=== PATIENT | female | born 1990 | race Caucasian/White ===

== ENCOUNTER 2020-08-12 08:55 | Emergency (ER) | payer OTHER, SELFPAY ==
[2020-08-12 10:02] VITALS: BP 152/98; PULSE 78; RESP 16; TEMP 36.8; O2SAT 99
--- NOTE | 2020-08-12 10:17 | ED.DENTAL ---
HPI - Dental/Oral General Chief complaint: Dental/Oral Stated complaint: tooth pain/possible sius infectiom Source: patient Mode of arrival: ambulatory Limitations: no limitations History of Present Illness HPI Narrative: Patient here with right lower dental pain. She reports intermittent dental pain for the past 2 to 3 months. She reports seeing dentist and reports needing tooth removed but has not scheduled as of this time. She reports taking ibuprofen with limited relief. She is also complaining of sinus pain and drainage x2 weeks. She denies fever, denies cough, denies known exposure to Covid, denies sore throat or other complaints. MD Complaint: tooth pain Related Data Allergies Allergy/AdvReac Type Severity Reaction Status Date / Time ANTIHISTAMINES Allergy Unknown Other Uncoded 08/12/20 10:07 Review of Systems Review of Systems: Narrative: CONSTITUTIONAL: Denies fever, chills, or sweats. EYES: Denies visual changes, redness, or discharge. ENT: Denies rhinorrhea, congestion, sore throat, or otalgia. Reports right lower dental pain, reports facial pain and pressure, green nasal drainage CARDIOVASCULAR: Denies chest pain, palpitations, or edema. RESPIRATORY: Denies cough or dyspnea. GASTROINTESTINAL: Denies abdominal pain, nausea, vomiting, or diarrhea. GENITOURINARY: Denies dysuria or hematuria. SKIN: Denies rash or itching. MUSCULOSKELETAL: Denies back pain, joint pain, or myalgia. NEUROLOGIC: Denies headache, numbness, dizziness, or weakness. PSYCHIATRIC: Denies anxiety or depression. [facility] Past Medical History Medical History Asthma Renal disease Surgical History Surgical History History of tonsillectomy and adenoidectomy Hx of tympanostomy tubes Family History Family History (Updated 08/12/20 @ 10:25 by ONEAL Esquivel) Other Cancer Diabetes mellitus Heart disease Renal disease Social History Social History (Updated 08/12/20 @ 10:25 by ONEAL Esquivel) Smoking status: Current every day smoker Tobacco type: cigarettes Alcohol intake: never Substance use: never Gender identity (if verbalized by the patient): Female Exam Narrative: Exam Narrative: GENERAL: Well-appearing, well-nourished, and in no acute distress. HEAD: Normocephalic, atraumatic. EYES: No redness or drainage. Conjunctiva are normal. ENT: Mucous membranes pink and moist. Maxillary sinus tenderness with palpation. Throat normal. Uvula midline. Multiple dental caries NECK: AROM. Supple. No lymphadenopathy. CHEST: No respiratory distress. HEART: Regular rate and rhythm. EXTREMITIES: Normal range of motion. SKIN: Warm, dry, no rash. NEURO: No focal deficits. Alert and oriented x3. Gait steady. PSYCH: Normal affect. No signs of depression or anxiety. Course Vital Signs Vital signs: Vital Signs Temperature 36.8 C 08/12/20 10:02 Pulse Rate 78 08/12/20 10:02 Respiratory Rate 16 08/12/20 10:02 Blood Pressure 152/98 H 08/12/20 10:02 Pulse Oximetry 99 08/12/20 10:02 Temperature 36.8 C 08/12/20 10:02 Pulse Rate 78 08/12/20 10:02 Respiratory Rate 16 08/12/20 10:02 Blood Pressure 152/98 H 08/12/20 10:02 Pulse Oximetry 99 08/12/20 10:02 MDM - Dental/Oral MDM Narrative Medical decision making narrative: Patient appears to have right dental tenderness, multiple dental caries. Maxillary sinus tenderness with palpation also noted. Patient to be treated for acute sinusitis, antibiotics to be prescribed. Patient aware and agrees with plan of care. Patient is stable for discharge home with outpatient follow-up as discussed. Differential Diagnosis Differential diagnosis: Likely dental caries, toothache and other (Sinusitis) Critical Care Time Critical Care Time Critical Care Time: No Discharge Plan Discharge Clinical Impression: Toothache, Dental dale
== END 2020-08-12 10:40 | disposition home or self-care (01) ==
PROVIDERS: Emergency Provider Nurse Practitioner
DX: K08.89 Other specified disorders of teeth and supporting structures (principal); K02.9 Dental caries, unspecified; J01.00 Acute maxillary sinusitis, unspecified; F17.210 Nicotine dependence, cigarettes, uncomplicated; J45.909 Unspecified asthma, uncomplicated
CPT/HCPCS: 99213; G0463

== ENCOUNTER 2023-11-29 12:22 | Outpatient (CLI) | payer OTHER, SELFPAY ==
--- NOTE | 2023-11-29 14:30 | NEURO_ITS ---
Impression: # Complains of blotchy redness of hands and forearms. # Normal Nerve Conduction Study. # No Carpal Tunnel Syndrome or ulnar neuropathy. # Normal needle/EMG exam. Nerve Conduction Studies Anti Sensory Summary Table Stim Site NR Peak (ms) P-T Amp (?V) Site1 Site2 Delta-P (ms) Dist (cm) Chris (m/s) Left Median Anti Sensory (2-3nd Digit) Wrist 2.5 86.2 Wrist 2-3nd Digit 2.5 14.0 56 Wrist 2.5 69.7 Wrist 2-3nd Digit 2.5 14.0 56 Right Median Anti Sensory (2-3nd Digit) Wrist 2.6 50.3 Wrist 2-3nd Digit 2.6 14.0 54 Wrist 2.4 82.6 Wrist 2-3nd Digit 2.6 14.0 54 Left Radial Anti Sensory (Base 1st Digit) Wrist 1.6 50.8 Wrist Base 1st Digit 1.6 0.0 Right Radial Anti Sensory (Base 1st Digit) Wrist 1.9 51.7 Wrist Base 1st Digit 1.9 0.0 Left Ulnar Anti Sensory (5th Digit) Wrist 2.3 72.7 Wrist 5th Digit 2.3 14.0 61 Right Ulnar Anti Sensory (5th Digit) Wrist 2.3 79.0 Wrist 5th Digit 2.3 14.0 61 Motor Summary Table Stim Site NR Onset (ms) O-P Amp (mV) Site1 Site2 Delta-0 (ms) Dist (cm) Chris (m/s) Left Median Motor (Abd Poll Brev) Wrist 2.6 6.0 Elbow Wrist 4.4 26.0 59 Elbow 7.0 4.8 Right Median Motor (Abd Poll Brev) Wrist 2.3 12.3 Elbow Wrist 4.3 26.0 60 Elbow 6.6 6.3 Left Ulnar Motor (Abd Dig Minimi) Wrist 2.2 7.2 A Elbow Wrist 4.7 28.0 60 A Elbow 6.9 6.0 Right Ulnar Motor (Abd Dig Minimi) Wrist 2.0 8.6 A Elbow Wrist 4.6 27.0 59 A Elbow 6.6 7.7 F Wave Studies NR F-Lat (ms) L-R F-Lat (ms) Left Median (Mrkrs) (Abd Poll Brev) 23.36 0.45 Right Median (Mrkrs) (Abd Poll Brev) 23.81 0.45 Left Ulnar (Mrkrs) (Abd Dig Min) 23.36 0.29 Right Ulnar (Mrkrs) (Abd Dig Min) 23.65 0.29 EMG Side Muscle Nerve Root Ins Act Fibs Amp Dur Recrt Comment Right 1stDorInt Ulnar C8-T1 Nml Nml Nml Nml Nml Right Ext Indicis Radial (Post Int) C7-8 Nml Nml Nml Nml Nml Right Ext Digitorum Radial (Post Int) C7-8 Nml Nml Nml Nml Nml Right BrachioRad Radial C5-6 Nml Nml Nml Nml Nml Right PronatorTeres Median C6-7 Nml Nml Nml Nml Nml Right Abd Poll Brev Median C8-T1 Nml Nml Nml Nml Nml Right ABD Dig Min Ulnar C8-T1 Nml Nml Nml Nml Nml Left 1stDorInt Ulnar C8-T1 Nml Nml Nml Nml Nml Left Ext Indicis Radial (Post Int) C7-8 Nml Nml Nml Nml Nml Left Ext Digitorum Radial (Post Int) C7-8 Nml Nml Nml Nml Nml Left BrachioRad Radial C5-6 Nml Nml Nml Nml Nml Left PronatorTeres Median C6-7 Nml Nml Nml Nml Nml Left Abd Poll Brev Median C8-T1 Nml Nml Nml Nml Nml Left ABD Dig Min Ulnar C8-T1 Nml Nml Nml Nml Nml MTDD
== END 2023-11-29 12:23 | disposition home or self-care (01) ==
PROVIDERS: Visit Provider Registered Nurse
DX: R20.2 Paresthesia of skin (principal)
CPT/HCPCS: 95886; 95911